=== PATIENT | male | born 1965 | race African-American/Black ===

== ENCOUNTER 2022-02-01 14:05 | Inpatient (IN) | payer OTHER ==
[2022-02-01] MEDS ORDERED: ACETAMINOPHEN 325 MG TABLET (FP) PO PRN ×2 (15:11)
[2022-02-01] MEDS ORDERED: BISMUTH SUBSALICYLATE 262 MG/15 ML BTL PO PRN (15:11)
[2022-02-01] MEDS ORDERED: ONDANSETRON *ODT* 4 MG TABLET SL PRN (15:11)
[2022-02-01] MEDS ORDERED: chlordiazePOXIDE HCL 25 MG CAPSULE PO PRN (15:11)
[2022-02-01] MEDS ORDERED: IBUPROFEN 400 MG TABLET (FP) PO PRN (15:11)
[2022-02-01] MEDS ORDERED: DICYCLOMINE HCL 10 MG CAPSULE PO PRN (15:11)
[2022-02-01] MEDS ORDERED: MAGNESIUM CITRATE 300 ML BOTTLE PO PRN (15:11)
[2022-02-01] MEDS ORDERED: MENTHOL/PHENOL 1 EACH UD MM PRN (15:11)
[2022-02-01] MEDS ORDERED: MAG HYDROX/AL HYDROX/SIMETH 30 ML UNIT-DOSE CUP PO PRN (15:11)
[2022-02-01] MEDS ORDERED: METHOCARBAMOL 500 MG TABLET PO PRN (15:11)
[2022-02-01] MEDS ORDERED: LOPERAMIDE HCL 2 MG CAPSULE PO PRN (15:11)
[2022-02-01] MEDS ORDERED: MAGNESIUM HYDROX 2400MG/30ML ORAL SUSPENSION 30 ML CUP PO PRN (15:11)
[2022-02-01] MEDS ORDERED: NICOTINE 10 MG CARTRIDGE (INHALER) IH PRN (15:11)
[2022-02-01 16:20] VITALS: BMI 21.2
[2022-02-01] MEDS ORDERED: METOPROLOL TARTRATE 25 MG TABLET (FP) PO ONE (17:47)
[2022-02-01] MEDS ORDERED: chlordiazePOXIDE HCL 25 MG CAPSULE ONE (18:03)
[2022-02-01] MEDS ORDERED: METOPROLOL TARTRATE 25 MG TABLET (FP) ONE (18:03)
[2022-02-01] MEDS: chlordiazePOXIDE HCL 25 MG CAPSULE PO SCH ×2 (18:05→22:15)
[2022-02-01] MEDS: hydrOXYzine PAMOATE 25 MG CAPSULE (FP) PO SCH ×2 (18:56→22:15)
[2022-02-01] MEDS: MELATONIN 5 MG TABLETS PO SCH (22:15)
[2022-02-01] MEDS: THIAMINE HCL 100 MG TABLET (FP) PO SCH (22:15)
[2022-02-02] MEDS: chlordiazePOXIDE HCL 25 MG CAPSULE PO SCH ×4 (06:12→22:15)
[2022-02-02] MEDS: hydrOXYzine PAMOATE 25 MG CAPSULE (FP) PO SCH ×5 (06:12→22:15)
[2022-02-02] MEDS: PRENATAL VITAMINS W/ FOLIC ACID TABLET (FP) PO SCH (10:47)
[2022-02-02 11:10] LABS: HEMATOCRIT 49.1 % (35.4-49); HEMOGLOBIN 16.6 GM/dL (11.7-16.9); MCH 33.6 pg (25.7-33.7); MCHC 33.9 g/dl (32.0-35.9); MEAN CELL VOLUME 99.1 fl (80-96); MEAN PLT VOLUME 8.3 fl (7.5-11.1); PLATELET COUNT 157 10^3/uL (134-434); RBC 4.95 M/mm3 (4.00-5.60); RDW 13.9 % (11.9-15.9); WHITE BLOOD COUNT 4.3 K/mm3 (4.0-10.0)
[2022-02-02 11:13] LABS: CALCIUM 9.4 mg/dL (8.5-10.1)
[2022-02-02 11:14] LABS: ALBUMIN 3.9 g/dl (3.4-5.0); BLOOD UREA NITROGEN 13.3 mg/dL (7-18)
[2022-02-02 11:17] LABS: CREATININE 1.2 mg/dL (0.55-1.3)
[2022-02-02 11:18] LABS: TOT PROT 7.5 g/dl (6.4-8.2)
[2022-02-02 11:19] LABS: BILIRUBIN,TOTAL 0.9 mg/dL (0.2-1)
[2022-02-02] MEDS: LISINOPRIL 20 MG TABLET PO SCH (12:05)
[2022-02-02] MEDS: THIAMINE HCL 100 MG TABLET (FP) PO SCH (22:15)
[2022-02-02] MEDS: MELATONIN 5 MG TABLETS PO SCH (22:15)
[2022-02-03] MEDS: chlordiazePOXIDE HCL 25 MG CAPSULE PO SCH ×4 (06:23→22:11)
[2022-02-03] MEDS: hydrOXYzine PAMOATE 25 MG CAPSULE (FP) PO SCH ×5 (06:24→22:13)
[2022-02-03] MEDS: LISINOPRIL 20 MG TABLET PO SCH (10:47)
[2022-02-03] MEDS: PRENATAL VITAMINS W/ FOLIC ACID TABLET (FP) PO SCH (10:47)
[2022-02-03 14:24] LABS: CHOLESTEROL 240 mg/dL (50-200); TRIGLYCERIDES 80 mg/dL (0-150)
[2022-02-03 14:27] LABS: HDL CHOLESTEROL 129 mg/dL (40-60)
[2022-02-03 14:29] LABS: LDL CHOLESTEROL (ONLY SJRH) 95 mg/dL (5-100)
[2022-02-03] MEDS: THIAMINE HCL 100 MG TABLET (FP) PO SCH (22:12)
[2022-02-03] MEDS: MELATONIN 5 MG TABLETS PO SCH (22:13)
[2022-02-04] MEDS ORDERED: chlordiazePOXIDE HCL 10 MG CAPSULE PO PRN
[2022-02-04] MEDS: hydrOXYzine PAMOATE 25 MG CAPSULE (FP) PO SCH ×5 (06:00→22:08)
[2022-02-04] MEDS: chlordiazePOXIDE HCL 10 MG CAPSULE PO SCH ×4 (06:01→22:07)
[2022-02-04] MEDS: PRENATAL VITAMINS W/ FOLIC ACID TABLET (FP) PO SCH (10:07)
[2022-02-04] MEDS: LISINOPRIL 20 MG TABLET PO SCH (10:07)
[2022-02-04 14:08] LABS: SARS-CoV-2 NAA Not Detected (Not Detected)
[2022-02-04] MEDS: MELATONIN 5 MG TABLETS PO SCH (22:08)
[2022-02-04] MEDS: THIAMINE HCL 100 MG TABLET (FP) PO SCH (22:08)
[2022-02-05] MEDS ORDERED: chlordiazePOXIDE HCL 10 MG CAPSULE PO SCH (05:00)
[2022-02-05] MEDS: hydrOXYzine PAMOATE 25 MG CAPSULE (FP) PO SCH ×2 (05:03→10:13)
[2022-02-05 09:08] VITALS: BP 114/71; PULSE 91; TEMP 98.1
[2022-02-05] MEDS: PRENATAL VITAMINS W/ FOLIC ACID TABLET (FP) PO SCH (10:13)
[2022-02-05] MEDS: LISINOPRIL 20 MG TABLET PO SCH (10:13)
[2022-02-06] MEDS ORDERED: chlordiazePOXIDE HCL 10 MG CAPSULE PO ONE (05:00)
== END 2022-02-05 12:30 | disposition other institution (70) | DRG 775 ==
LOC: YASAS 14:05 → Y6N 18:21
PROVIDERS: ADMIT Allergy & Immunology; ATTEND Allergy & Immunology
PROC: HZ2ZZZZ Detoxification Services for Substance Abuse Treatment (ICD-10-PCS; principal; 2022-02-01)
DX: F10.230 Alcohol dependence with withdrawal, uncomplicated (principal); F12.20 Cannabis dependence, uncomplicated; F31.9 Bipolar disorder, unspecified; F43.10 Post-traumatic stress disorder, unspecified; I10 Essential (primary) hypertension; E11.9 Type 2 diabetes mellitus without complications; Z87.828 Personal history of other (healed) physical injury and trauma; Z91.51 Personal history of suicidal behavior; Z99.89 Dependence on other enabling machines and devices
CPT/HCPCS: 36415; 80053; 80061; 82962; 83036; 85027; 86780; 93005; 93010; C9803-CS; U0003; U0005

== ENCOUNTER 2022-02-05 12:37 | Inpatient (IN) | payer OTHER ==
[2022-02-05] MEDS ORDERED: MAGNESIUM HYDROX 2400MG/30ML ORAL SUSPENSION 30 ML CUP PO PRN (14:13)
[2022-02-05] MEDS ORDERED: LOPERAMIDE HCL 2 MG CAPSULE PO PRN (14:13)
[2022-02-05] MEDS ORDERED: ACETAMINOPHEN 325 MG TABLET (FP) PO PRN (14:13)
[2022-02-05] MEDS ORDERED: P-EPHED 60MG/TRIPROLIDI 2.5MG TABLET PO PRN (14:13)
[2022-02-05] MEDS ORDERED: guaiFENesin 200 MG/10 ML 10 ML UNIT-DOSE CUPS PO PRN (14:13)
[2022-02-05] MEDS ORDERED: MAGNESIUM CITRATE 300 ML BOTTLE PO PRN (14:13)
[2022-02-05] MEDS ORDERED: BENZOCAINE/MENTHOL (CHLORASEPTIC ) LOZENGE MM PRN (14:13)
[2022-02-05] MEDS: MELATONIN 5 MG TABLETS PO SCH (21:06)
[2022-02-05] MEDS: THIAMINE HCL 100 MG TABLET (FP) PO SCH (21:06)
[2022-02-06] MEDS ORDERED: LISINOPRIL 20 MG TABLET PO SCH (10:00)
[2022-02-06] MEDS: LISINOPRIL 20 MG TABLET PO SCH (10:25)
[2022-02-06] MEDS: PRENATAL VITAMINS W/ FOLIC ACID TABLET (FP) PO SCH (10:25)
[2022-02-06] MEDS: MELATONIN 5 MG TABLETS PO SCH (21:57)
[2022-02-06] MEDS: THIAMINE HCL 100 MG TABLET (FP) PO SCH (21:57)
[2022-02-07] MEDS ORDERED: cloNIDine HCL 0.1 MG TABLET PO ONE (09:13)
[2022-02-07] MEDS: LISINOPRIL 20 MG TABLET PO SCH (09:51)
[2022-02-07] MEDS: PRENATAL VITAMINS W/ FOLIC ACID TABLET (FP) PO SCH (09:51)
[2022-02-07] MEDS: THIAMINE HCL 100 MG TABLET (FP) PO SCH (21:04)
[2022-02-07] MEDS: MELATONIN 5 MG TABLETS PO SCH (21:04)
[2022-02-08] MEDS: PRENATAL VITAMINS W/ FOLIC ACID TABLET (FP) PO SCH (10:58)
[2022-02-08] MEDS: LISINOPRIL 20 MG TABLET PO SCH (10:58)
[2022-02-08] MEDS: MAG HYDROX/AL HYDROX/SIMETH 30 ML UNIT-DOSE CUP PO PRN (16:58)
[2022-02-08] MEDS: MELATONIN 5 MG TABLETS PO SCH (21:07)
[2022-02-08] MEDS: THIAMINE HCL 100 MG TABLET (FP) PO SCH (21:07)
[2022-02-09] MEDS: MAG HYDROX/AL HYDROX/SIMETH 30 ML UNIT-DOSE CUP PO PRN (05:57)
[2022-02-09 08:06] LABS: SARS-CoV-2 NAA Not Detected (Not Detected)
[2022-02-09] MEDS ORDERED: DICYCLOMINE HCL 10 MG CAPSULE PO PRN (09:54)
[2022-02-09] MEDS: LISINOPRIL 20 MG TABLET PO SCH (10:10)
[2022-02-09] MEDS: PRENATAL VITAMINS W/ FOLIC ACID TABLET (FP) PO SCH (10:10)
[2022-02-09] MEDS: DICYCLOMINE HCL 10 MG CAPSULE PO PRN ×2 (14:45→21:30)
[2022-02-09] MEDS: THIAMINE HCL 100 MG TABLET (FP) PO SCH (21:29)
[2022-02-09] MEDS: MELATONIN 5 MG TABLETS PO SCH (21:29)
[2022-02-10] MEDS: LISINOPRIL 20 MG TABLET PO SCH (09:56)
[2022-02-10] MEDS: PRENATAL VITAMINS W/ FOLIC ACID TABLET (FP) PO SCH (09:56)
[2022-02-10] MEDS ORDERED: cloNIDine HCL 0.1 MG TABLET PO ONE (16:16)
[2022-02-10] MEDS: MELATONIN 5 MG TABLETS PO SCH (21:03)
[2022-02-10] MEDS: THIAMINE HCL 100 MG TABLET (FP) PO SCH (21:03)
[2022-02-11] MEDS: PRENATAL VITAMINS W/ FOLIC ACID TABLET (FP) PO SCH (10:27)
[2022-02-11] MEDS: LISINOPRIL 20 MG TABLET PO SCH (10:29)
[2022-02-11] MEDS: THIAMINE HCL 100 MG TABLET (FP) PO SCH (21:40)
[2022-02-11] MEDS: MELATONIN 5 MG TABLETS PO SCH (21:40)
[2022-02-12] MEDS: PRENATAL VITAMINS W/ FOLIC ACID TABLET (FP) PO SCH (09:38)
[2022-02-12] MEDS: LISINOPRIL 20 MG TABLET PO SCH (09:38)
[2022-02-12] MEDS: THIAMINE HCL 100 MG TABLET (FP) PO SCH (21:01)
[2022-02-12] MEDS: MELATONIN 5 MG TABLETS PO SCH (21:01)
[2022-02-13] MEDS: LISINOPRIL 20 MG TABLET PO SCH (10:44)
[2022-02-13] MEDS: PRENATAL VITAMINS W/ FOLIC ACID TABLET (FP) PO SCH (10:44)
[2022-02-13] MEDS: THIAMINE HCL 100 MG TABLET (FP) PO SCH (21:31)
[2022-02-13] MEDS: MELATONIN 5 MG TABLETS PO SCH (21:31)
[2022-02-14] MEDS: PRENATAL VITAMINS W/ FOLIC ACID TABLET (FP) PO SCH (09:14)
[2022-02-14] MEDS: LISINOPRIL 20 MG TABLET PO SCH (09:14)
[2022-02-14] MEDS: HYDROCHLOROTHIAZIDE 25 MG TABLET (FP) PO SCH (13:03)
[2022-02-14] MEDS: MELATONIN 5 MG TABLETS PO SCH (21:03)
[2022-02-14] MEDS: THIAMINE HCL 100 MG TABLET (FP) PO SCH (21:03)
[2022-02-14] MEDS ORDERED: cloNIDine HCL 0.1 MG TABLET PO ONE (22:11)
[2022-02-14] MEDS: hydrOXYzine PAMOATE 25 MG CAPSULE (FP) PO PRN (22:15)
[2022-02-15] MEDS: HYDROCHLOROTHIAZIDE 25 MG TABLET (FP) PO SCH ×2 (11:36→11:38)
[2022-02-15] MEDS: LISINOPRIL 20 MG TABLET PO SCH ×2 (11:36→11:38)
[2022-02-15] MEDS: PRENATAL VITAMINS W/ FOLIC ACID TABLET (FP) PO SCH (11:37)
[2022-02-15] MEDS: THIAMINE HCL 100 MG TABLET (FP) PO SCH (22:12)
[2022-02-15] MEDS: MELATONIN 5 MG TABLETS PO SCH (22:12)
[2022-02-16] MEDS: LISINOPRIL 20 MG TABLET PO SCH (06:22)
[2022-02-16] MEDS: HYDROCHLOROTHIAZIDE 25 MG TABLET (FP) PO SCH (06:22)
[2022-02-16] MEDS: PRENATAL VITAMINS W/ FOLIC ACID TABLET (FP) PO SCH (10:23)
[2022-02-16] MEDS: THIAMINE HCL 100 MG TABLET (FP) PO SCH (21:43)
[2022-02-16] MEDS: MELATONIN 5 MG TABLETS PO SCH (21:43)
[2022-02-16] MEDS: hydrOXYzine PAMOATE 25 MG CAPSULE (FP) PO PRN (21:44)
[2022-02-17] MEDS: HYDROCHLOROTHIAZIDE 25 MG TABLET (FP) PO SCH (05:58)
[2022-02-17] MEDS: LISINOPRIL 20 MG TABLET PO SCH (05:58)
[2022-02-17] MEDS: PRENATAL VITAMINS W/ FOLIC ACID TABLET (FP) PO SCH (09:14)
[2022-02-17] MEDS: hydrOXYzine PAMOATE 25 MG CAPSULE (FP) PO PRN (21:04)
[2022-02-17] MEDS: THIAMINE HCL 100 MG TABLET (FP) PO SCH (21:04)
[2022-02-17] MEDS: MELATONIN 5 MG TABLETS PO SCH (21:04)
[2022-02-18] MEDS: HYDROCHLOROTHIAZIDE 25 MG TABLET (FP) PO SCH (05:46)
[2022-02-18] MEDS: LISINOPRIL 20 MG TABLET PO SCH (05:46)
[2022-02-18] MEDS: PRENATAL VITAMINS W/ FOLIC ACID TABLET (FP) PO SCH (09:44)
[2022-02-18] MEDS: THIAMINE HCL 100 MG TABLET (FP) PO SCH (21:37)
[2022-02-18] MEDS: MELATONIN 5 MG TABLETS PO SCH (21:37)
[2022-02-18] MEDS: hydrOXYzine PAMOATE 25 MG CAPSULE (FP) PO PRN (21:38)
[2022-02-19] MEDS: LISINOPRIL 20 MG TABLET PO SCH (05:59)
[2022-02-19] MEDS: HYDROCHLOROTHIAZIDE 25 MG TABLET (FP) PO SCH (05:59)
[2022-02-19 07:33] VITALS: BP 167/82; PULSE 92; TEMP 97.7
[2022-02-19] MEDS: PRENATAL VITAMINS W/ FOLIC ACID TABLET (FP) PO SCH (09:04)
== END 2022-02-19 09:30 | disposition home or self-care (01) | DRG 772 ==
LOC: YASAS 12:37 → Y3W 12:38
PROVIDERS: ADMIT Allergy & Immunology; ATTEND Allergy & Immunology
PROC: HZ42ZZZ Group Counseling for Substance Abuse Treatment, Cognitive-Behavioral (ICD-10-PCS; principal; 2022-02-05)
DX: F10.20 Alcohol dependence, uncomplicated (principal); I10 Essential (primary) hypertension; R10.9 Unspecified abdominal pain; Z99.89 Dependence on other enabling machines and devices; Z88.5 Allergy status to narcotic agent; Z91.018 Allergy to other foods
CPT/HCPCS: C9803-CS; J0735; U0003; U0005